=== PATIENT | male | born 1995 | race African-American/Black ===

== ENCOUNTER 2020-03-10 21:25 | Emergency (ER) | payer BC ==
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
[2020-03-11] MEDS ORDERED: LIDOCAINE 5% (700 MG) TRANSDERMAL ADH..PATCH TP ONE (00:40)
[2020-03-11] MEDS ORDERED: IBUPROFEN 800 MG TABLET PO ONE (00:40)
[2020-03-11] MEDS ORDERED: ACETAMINOPHEN 325 MG TABLET PO ONE (00:40)
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
[2020-03-11 01:49] VITALS: BP 185/96
== END 2020-03-11 01:48 | disposition home or self-care (01) ==
LOC: ER 21:25
DX: M54.5 Low back pain (principal); V49.60XA Unspecified car occupant injured in collision with unspecified motor vehicles in traffic accident, initial encounter
CPT/HCPCS: 72110; 99283